=== PATIENT | female | born 2000 | race Two or more races ===

== ENCOUNTER 2022-02-03 01:53 | Emergency (ER) | payer OTHER, SELFPAY ==
--- NOTE | ~2022-02-03 | XR_ITS ---
EXAMINATION: XR FOOT, LEFT CLINICAL INFORMATION: Question glass in foot. COMPARISON: None TECHNIQUE: AP, lateral, and oblique views of the left foot. FINDINGS: No fracture or dislocation. Alignment is anatomic. Joint spaces are maintained. No radiopaque foreign body. The soft tissues appear unremarkable. XR/XR foot LT min 3V IMPRESSION: No radiopaque foreign body.
[2022-02-03 02:25] VITALS: BP 152/85; PULSE 107; RESP 16; TEMP 36.9; O2SAT 99; BMI 30.2
--- NOTE | 2022-02-03 07:52 | ED_ITS ---
HPI - Extremity Injury (Lower) General Chief Complaint: Extremity Injury, Lower Stated Complaint: L Foot has glass Time Seen by Provider: 02/03/22 07:49 Source: patient and family Mode of arrival: ambulatory Limitations: no limitations History of Present Illness HPI Narrative: 21-year-old female came in for evaluation of possible piece of glass retained in the left foot. Patient was walking wearing her slipper and sucks stepped on broken glass patient felt a puncture wound to the left foot, painful to walk on it, patient is up-to-date on her vaccination. Patient has no other complaints. Related Data Previous Rx's Medication Instructions Recorded bacitracin 500 unit/gram topical 1 appl topical Q8H #28 grams 02/03/22 ointment Allergies Allergy/AdvReac Type Severity Reaction Status Date / Time amoxicillin Allergy Unknown Verified 02/03/22 02:21 Review of Systems Review of Systems: All other systems are reviewed and are negative Constitutional: Reports as per HPI and Reports no additional constitutional complaints Eyes: Reports as per HPI and Reports no additional eye complaints Reports system reviewed and no additional complaints, except as documented Cardiovascular: Reports as per HPI and Reports no additional cardiovascular complaints Respiratory: Reports as per HPI and Reports no additional respiratory complaints Gastrointestinal: Reports as per HPI and Reports no additional gastrointestinal complaints Genitourinary: Reports no additional female genitourinary complaints Musculoskeletal: Reports no additional musculoskeletal complaints Skin/Breast: Reports system reviewed and no additional complaints, except as docu Psychiatric: Reports no additional psychiatric complaints Endocrine: Reports no additional endocrine complaints Hematologic/Lymphatic: Reports no additional hematologic/lymphatic complaints Allergic/Immunologic: Reports no additional allergic/immunologic complaints Reports system reviewed and no additional complaints, except as documented and Reports Abnormal speech present [facility] Social History Social History Advance Directives: No Advance Directives Information Provided: No Physical Exam Vital Signs: Vital Signs: Last Vital Signs Temp 98.4 F 02/03/22 02:25 Pulse 107 H 02/03/22 02:25 Resp 16 02/03/22 02:25 BP 152/85 H 02/03/22 02:25 Pulse Ox 99 02/03/22 02:25 O2 Del Method 02/03/22 02:25 BMI result Body Mass Index 30.2 Vital signs have been reviewed as appeared to be correct. Blood pressure normal. Heart rate normal. Respiration rate normal. Temperature normal. Oxygen saturation normal. Appearance: Alert. Oriented X3. No acute distress. Head: Normal external exam. Normocephalic. Atraumatic. No Gentile signs noted. No raccoon eyes noted Eyes: PERRLA. EOMI. Conjunctiva and sclera normal. Eyelids normal. ENT: TM's Normal. Pharynx normal. Uvula midline. Moist mucous membranes. No trismus noted. No drooling noted. No muffled voice noted. Neck: Normal inspection. Neck supple. FROM. No adenopathy. Thyroid Normal. No meningeal signs. No neck mass noted. CVS: Normal heart rate and rhythm. Heart sound normal. No murmurs noted. Pulses normal throughout. Respiratory: No respiratory distress. Painless inspiration. Breath sounds normal. No wheezes/rales/rhonchi noted. Chest nontender. No accessory muscle usage noted or decreased air movement noted. Abdomen: Soft and nontender. Bowel sounds normal in all 4 quadrants. No distention noted. No organomegaly noted. No visible injury noted. Back: No CVA tenderness. Full range of motion noted. Skin: Skin warm and dry. Normal skin color. Normal skin turgor. No rashes/lesions/lacerations noted. Extremities: Less than 1 cm area of dry blood, tender to touch and cleaning, no visible foreign body a retained in the area, neurovascularly intact.. Neuro: Oriented X 3. Cranial nerve exam: II-XII are grossly intact No motor deficit. No sensory deficit. Reflexes normal. MDM - Extremity Injury (Lower) Imaging Data Left foot x-ray: Attestation: I personally reviewed and interpreted this imaging study as follows: Radiologist's impression: No radiopaque foreign body. Discharge Plan Discharge Clinical Impression: Puncture wound of foot Patient Disposition: Home, Self-Care Instructions: Puncture Wound in the Foot (ED) Prescriptions: New bacitracin 500 unit/gram ointment 1 appl topical Q8H Qty: 28 0RF Referrals: Physician,Unknown J [Primary Care Provider] -
== END 2022-02-03 08:04 | disposition home or self-care (01) ==
PROVIDERS: Emergency Provider Emergency Medicine
DX: S91.332A Puncture wound without foreign body, left foot, initial encounter (principal); W22.8XXA Striking against or struck by other objects, initial encounter; Y93.89 Activity, other specified; Y92.019 Unspecified place in single-family (private) house as the place of occurrence of the external cause; Y99.9 Unspecified external cause status
CPT/HCPCS: 73630; 99282; 99283